=== PATIENT | female | born 1985 | race African-American/Black ===

== ENCOUNTER 2016-11-11 12:38 | Emergency (ER) | payer OTHER ==
[~2016-11-11] VITALS: Ht 170.2 cm; Wt 56.7 kg
[2016-11-11 12:43] VITALS: BP 136/81
[2016-11-11] MEDS ORDERED: HYDR-2758 PO (13:23)
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
== END 2016-11-11 13:34 | disposition home or self-care (01) ==
LOC: ER 12:38
DX: M54.2 Cervicalgia (principal); V49.49XA Driver injured in collision with other motor vehicles in traffic accident, initial encounter; Y93.89 Activity, other specified; Y92.89 Other specified places as the place of occurrence of the external cause; Y99.8 Other external cause status
CPT/HCPCS: 99283